=== PATIENT | male | born 1960 | race Two or more races ===

== ENCOUNTER 2024-01-05 08:54 | Inpatient (IN) | payer OTHER ==
[~2024-01-05] VITALS: Ht 182.9 cm; Wt 90.7 kg
--- NOTE | 2024-01-05 09:25 | NUR ---
SE RECIBE PACIENTE ALERTA EN COMPANIA DE JIMENEZ ESPOSA REFIERE VENIR YA QUE PACIENTE ESTA SUFRIENDO MOVIMIENTO INVOLUTARIOS PARECIDO A CONVULSIONES. ESTA REFIERE QUE EN EL CONRAD DE HOY PACIENTE HERNANDEZ ESTADO PRESENTANDO EPISODIOS DE [place], ENTUMECIMIENTO DE L[place] MAN[place], OJOS HACIA ATRAS. SE OBSERVA QUE AL SONREIR LOS LABIOS SE VIRAN. POCA DIFICULTAD PARA HABLAR.
[2024-01-05] MEDS ORDERED: HUMALOG100 UNIT/1 (09:33)
[2024-01-05] MEDS ORDERED: METFORMIN HCL1000 M2 (09:34)
[2024-01-05] MEDS ORDERED: ARICEPT5 MG (09:34)
[2024-01-05] MEDS ORDERED: LevETIRAcetam 500 MG/5 ML VIAL IV ONE (10:15)
[2024-01-05] MEDS ORDERED: DEXAMETHASONE SODIUM PHOSPHATE 4 MG/ML VIAL IV ONE (10:15)
[2024-01-05] MEDS ORDERED: 0.9 % SODIUM CHLORIDE 1,000 ML IV STA (10:30)
--- NOTE | 2024-01-05 10:43 | NUR ---
SE ORIENTA A PTE Y FAMILIAR SOBRE TX MEDICO ORDENADO POR . SE REALIZA DAWSON DE MUETRAS BRUCE ORDEN MEDICA Y BAJO MEDIDAS ASEPTICAS. VENOPUNCION PATENTE EN H/L Y BAJANDO IV FLUIDS POR REGULADOR. PTE PENDIENTE A ESTUDIO ORDENADO, SE NOTIFICA.
[2024-01-05 10:44] LABS: HEMATOCRIT 40.5 % (39.0-48.0); HEMOGLOBIN 14.4 g/dL (13-16.00); MEAN CELL VOLUME 92.5 fL (80.0-100.00); MEAN CORPUSCULAR HEMOGLOBIN 32.9 pg (27.00-32.0); MEAN CORPUSCULAR HGB CONC 35.5 g/dl (32.0-36.0); PLATELET COUNT 257 K/uL (150-450); RED BLOOD COUNT 4.38 M/uL (4.00-6.00); RED CELL DISTRIBUTION WIDTH 12.4 % (11.5-14.5)
[2024-01-05 11:08] LABS: URINE APPEARANCE Clear; URINE BILIRRUBIN Negative (NEGATIVE); URINE BLOOD Negative; URINE COLOR Yellow; URINE LEUKOCYTE Negative; URINE NITRATE Negative; URINE PROTEIN Negative (NEGATIVE); URINE UROBILINOGEN 0.2 E.U./dl
[2024-01-05 11:18] LABS: URINE BACTERIA 3.7 uL (0.0-1933); URINE EPITHELIAL CELLS 1.3 uL (0.0-38.8); URINE GLUCOSE >=1000 MG/DL (NEGATIVE); URINE RBC 0.4 uL (0.0-20.8)
[2024-01-05 11:19] LABS: BILIRUBIN TOTAL 1.04 mg/dL (0.3-1.2); BILIRUBIN,CONJUGATED 0.25 mg/dL (0.0-0.2); BILIRUBIN,UNCONJUGATED 0.79 mg/dL (0.0-0.6); CREATININE SERUM 0.92 mg/dL (0.70-1.30); GFR 83.36; POTASSIUM 3.97 mEq/L (3.5-5.1)
[2024-01-05] MEDS ORDERED: INSULIN REGULAR, HUMAN 1,000 UNIT/10 ML UNITS IV STA (11:41)
--- NOTE | 2024-01-05 15:40 | NUR ---
SE RECIBE PACIENTE ALERTA Y ORIENTADO X 2 EN CAMA CON BARANDAS ELEVADAS POR SEGURIDAD. PRESENTANDO BUEN PATRON RESPIRATORIO. RECIBIENDO IV'S 0.9NSS BAJANDO A 100ML/HR AREA DE VENOPUNCION EN BRAZO BONNY Y DERECHO AREA DE VENOUPUNCION YASMANY DE EDEMA Y ERITEMA. PENDIENTE RESULTADO DE MRI. SE MANTIENE EN OBSERVACION POR CAMBIOS EN CONDICION MEDICA.
[2024-01-05] MEDS ORDERED: INSULIN REGULAR, HUMAN 1,000 UNIT/10 ML UNITS SUBCUTANEO ONE (17:30)
[2024-01-05] MEDS ORDERED: LevETIRAcetam 5 MG/1 ML REDILUIDO IV SCH (18:55)
[2024-01-05] MEDS ORDERED: LORazepam 2 MG/ML VIAL IV ONE (19:00)
[2024-01-05] MEDS ORDERED: CEFTRIAXONE SODIUM 2,000 MG in 0.9 % SODIUM CHLORIDE 100 ML IV SCH (19:06)
[2024-01-05] MEDS ORDERED: 0.9 % SODIUM CHLORIDE 1,000 ML IV SCH (19:15)
[2024-01-05] MEDS ORDERED: ACETAMINOPHEN 500 MG GEL..CAP PO PRN (19:15)
[2024-01-05] MEDS ORDERED: INSULIN LISPRO 1,000 UNIT/10 ML UNITS SUBCUTANEO PRN (19:15)
[2024-01-05] MEDS ORDERED: DEXTROSE 50 % IN WATER 0.5 G/ML DISP.SYRIN IV PRN (19:15)
[2024-01-05] MEDS ORDERED: LORazepam 1 MG TABLET PO PRN (19:15)
[2024-01-05] MEDS ORDERED: LORazepam 2 MG/ML VIAL IV PUSH STA (21:08)
[2024-01-05 21:28] LABS: INR 1.02; PARTIAL THROMBOPLASTIN TIME 29.3 SECONDS (22.0-34.0); PROTHROMBIN TIME 10.7 SECONDS (9.0-11.5)
[2024-01-05 21:29] LABS: C-REACTIVE PROTEIN 7.58 MG/DL (0.00-0.29); MAGNESIUM 1.7 mg/dL (1.8-2.4); PHOSPHOROUS 2.6 mg/dL (2.5-4.9)
[2024-01-06] MEDS ORDERED: FAMOTIDINE/PF 20 MG in 0.9 % SODIUM CHLORIDE 8 ML IV PUSH SCH ×2 (09:00→21:00)
[2024-01-06] MEDS ORDERED: DEXTROSE 50 % IN WATER 0.5 G/ML VIAL IV PRN (11:15)
[2024-01-06] MEDS ORDERED: LORazepam 2 MG/ML VIAL IV STA (12:20)
[2024-01-06] MEDS ORDERED: LevETIRAcetam 5 MG/1 ML REDILUIDO IV SCH (17:00)
[2024-01-06] MEDS ORDERED: DEXAMETHASONE SODIUM PHOSPHATE 4 MG/ML VIAL IV SCH (18:00)
[2024-01-07 07:27] LABS: ALBUMIN 3.2 gm/dL (3.4-5.0); BILIRUBIN TOTAL 0.53 mg/dL (0.3-1.2); CALCIUM 8.3 mg/dL (8.5-10.1); CREATININE SERUM 0.62 mg/dL (0.70-1.30); GFR 131.45; GLOBULINA 3.2 G/DL (2.4-3.5); POTASSIUM 4.45 mEq/L (3.5-5.1); TOTAL PROTEIN 6.4 gm/dL (6.4-8.2)
[2024-01-07 07:29] LABS: TSH 0.702 uIU/mL (0.358-3.74)
[2024-01-07] MEDS ORDERED: DEXTROSE 50 % IN WATER 0.5 G/ML DISP.SYRIN IV PRN (14:15)
[2024-01-07] MEDS ORDERED: INSULIN NPH HUMAN ISOPHANE 1,000 UNITS/10 ML UNITS SUBCUTANEO SCH (21:00)
[2024-01-08] MEDS ORDERED: INSULIN NPH HUMAN ISOPHANE 1,000 UNITS/10 ML UNITS SUBCUTANEO SCH (09:17)
== END 2024-01-08 21:06 | disposition home or self-care (01) | DRG 101 ==
LOC: ER 08:55 → ICU-2 19:18 → SEC-K 01-07 11:40 → MEDI 01-07 15:53
PROVIDERS: General Practice; Internal Medicine Endocrinology, Diabetes & Metabolism; ADMIT Internal Medicine; ATTEND Internal Medicine
PROC: BW28ZZZ Computerized Tomography (CT Scan) of Head (ICD-10-PCS; principal; 2024-01-05)
PROC: B030ZZZ Magnetic Resonance Imaging (MRI) of Brain (ICD-10-PCS; 2024-01-05)
PROC: 4A12X4Z Monitoring of Cardiac Electrical Activity, External Approach (ICD-10-PCS; 2024-01-08)
DX: G40.209 Localization-related (focal) (partial) symptomatic epilepsy and epileptic syndromes with complex partial seizures, not intractable, without status epilepticus (principal); I67.82 Cerebral ischemia; R65.10 Systemic inflammatory response syndrome (SIRS) of non-infectious origin without acute organ dysfunction; F32.89 Other specified depressive episodes; F03.90 Unspecified dementia, unspecified severity, without behavioral disturbance, psychotic disturbance, mood disturbance, and anxiety
CPT/HCPCS: 70544

== ENCOUNTER 2024-06-29 17:05 | Inpatient (IN) | payer OTHER ==
[~2024-06-29] VITALS: Ht 175.3 cm; Wt 90.7 kg
[~2024-06-29 17:05] MED LIST: ARICEPT5 MG; HUMALOG100 UNIT/1; METFORMIN HCL1000 M2
[2024-06-29] MEDS ORDERED: KEPPRA1000 MG (17:47)
[2024-06-29] MEDS ORDERED: LevETIRAcetam 500 MG/5 ML VIAL IV SCH (18:15)
[2024-06-29] MEDS ORDERED: levoFLOXacin IN DEXTROSE 5 % 500MG/100ML PIGGYBAG IV ONE ×2 (18:15→18:55)
[2024-06-29] MEDS ORDERED: FAMOtidine 10 MG/ML (4ML VIAL) IV ONE (18:15)
[2024-06-29] MEDS ORDERED: 0.9 % SODIUM CHLORIDE 1,000 ML IV ONE (18:30)
[2024-06-29 18:50] LABS: HEMATOCRIT 42.6 % (39.0-48.0); HEMOGLOBIN 15.1 g/dL (13-16.00); MEAN CELL VOLUME 90.9 fL (80.0-100.00); MEAN CORPUSCULAR HEMOGLOBIN 32.3 pg (27.00-32.0); MEAN CORPUSCULAR HGB CONC 35.5 g/dl (32.0-36.0); PLATELET COUNT 243 K/uL (150-450); RED BLOOD COUNT 4.68 M/uL (4.00-6.00); RED CELL DISTRIBUTION WIDTH 12.8 % (11.5-14.5)
[2024-06-29] MEDS ORDERED: LevETIRAcetam 500 MG/5 ML VIAL IV ONE ×3 (18:54→22:17)
[2024-06-29] MEDS ORDERED: FAMOTIDINE/PF 20 MG/2 ML VIAL ONE (18:55)
[2024-06-29 19:05] LABS: INR 0.95; PARTIAL THROMBOPLASTIN TIME 25.4 SECONDS (22.0-34.0); PROTHROMBIN TIME 10.4 SECONDS (9.0-11.5)
[2024-06-29 19:13] LABS: URINE APPEARANCE Clear; URINE BILIRRUBIN Negative (NEGATIVE); URINE BLOOD Negative; URINE COLOR Yellow; URINE KETONE Trace (NEGATIVE); URINE LEUKOCYTE Negative; URINE NITRATE Negative; URINE PROTEIN Trace (NEGATIVE)
[2024-06-29 19:17] LABS: URINE EPITHELIAL CELLS 1.8 uL (0.0-38.8)
[2024-06-29 19:17] LABS: ERYTHROCYTE SEDIMENTATION RATE 23 mm/hr
[2024-06-29 19:24] LABS: URINE CAST 0.44 uL (0.0-1.40); URINE GLUCOSE >=1000 MG/DL (NEGATIVE); URINE RBC 0.4 uL (0.0-20.8); URINE WBC 1.4 uL (0.0-23.2)
[2024-06-29 19:43] LABS: COCAINE NEGATIVE (NEGATIVE); METHADONE NEGATIVE (NEGATIVE); OPIATES NEGATIVE (NEGATIVE); THC ( Cannabinoids) NEGATIVE (NEGATIVE)
[2024-06-29 19:51] LABS: ALBUMIN 4.2 gm/dL (3.4-5.0); BILIRUBIN TOTAL 0.49 mg/dL (0.3-1.2); CALCIUM 9.2 mg/dL (8.5-10.1); CREATININE SERUM 1.01 mg/dL (0.70-1.30); GFR 74.85; GLOBULINA 2.8 G/DL (2.4-3.5); POTASSIUM 4.91 mEq/L (3.5-5.1)
[2024-06-29 20:10] LABS: C-REACTIVE PROTEIN 0.42 MG/DL (0.00-0.29)
[2024-06-29] MEDS ORDERED: LORazepam 2 MG/ML VIAL IV ONE (20:45)
[2024-06-29] MEDS ORDERED: LORazepam 2 MG/ML DISP.SYRIN ONE (20:49)
[2024-06-29 22:59] LABS: ABG PH 7.396 (7.35-7.45); ABG PO2 76.4 mmHg (80-100); ABG pCO2 34.6 mmHg (35-45)
[2024-06-29 23:00] LABS: BASE EXCESS -3.3 mmol/l; BICARBONATE 20.8 mmol/l (23-25); Tco2 21.8 mmol/l; allen test SATISFACTORY; o2 21 %; puncture site RADIAL RIGHT
[2024-06-29] MEDS ORDERED: INSULIN LISPRO 1,000 UNIT/10 ML UNITS SUBCUTANEO PRN (23:00)
[2024-06-29] MEDS ORDERED: ACETAMINOPHEN 500 MG GEL..CAP PO PRN (23:00)
[2024-06-29] MEDS ORDERED: LORazepam 2 MG/ML VIAL IV PRN (23:00)
[2024-06-29] MEDS ORDERED: DEXTROSE 50 % IN WATER 0.5 G/ML DISP.SYRIN IV PRN (23:00)
[2024-06-29] MEDS ORDERED: 0.9 % SODIUM CHLORIDE 1,000 ML IV SCH (23:00)
[2024-06-29 23:02] LABS: SaO2 94.9 %
[2024-06-30 00:13] VITALS: BP 122/69; O2SAT 96
[2024-06-30 01:53] VITALS: BP 129/81; O2SAT 98
[2024-06-30 07:53] VITALS: BP 142/90
[2024-06-30 08:09] LABS: PHOSPHOROUS 3.7 mg/dL (2.5-4.9); TSH 3.62 uIU/mL (0.358-3.74)
[2024-06-30] MEDS ORDERED: LevETIRAcetam 500 MG/5 ML VIAL IV SCH ×2 (09:00)
[2024-06-30] MEDS ORDERED: ENOXAPARIN SODIUM 40 MG/0.4 ML SYRINGE SUBCUTANEO SCH (09:00)
[2024-06-30] MEDS ORDERED: FAMOTIDINE/PF 20 MG in 0.9 % SODIUM CHLORIDE 8 ML IV PUSH SCH (09:00)
[2024-06-30] MEDS ORDERED: LORazepam 2 MG/ML VIAL IV STA (12:32)
[2024-06-30] MEDS ORDERED: LORazepam 2 MG/ML VIAL IV PRN (12:45)
[2024-06-30 16:00] VITALS: BP 126/79; O2SAT 99
[2024-06-30] MEDS ORDERED: DONEPEZIL HCL 5 MG TABLET PO SCH (17:00)
[2024-07-01 01:48] VITALS: BP 127/84; O2SAT 95
[2024-07-01 08:40] VITALS: BP 153/98; O2SAT 95
[2024-07-01] MEDS ORDERED: DIVALPROEX SODIUM 500 MG TABLET.DR PO SCH (17:00)
[2024-07-01] MEDS ORDERED: LevETIRAcetam 5 MG/1 ML REDILUIDO IV SCH (17:00)
[2024-07-01 17:32] VITALS: BP 127/83; O2SAT 99
[2024-07-01] MEDS ORDERED: INSULIN GLARGINE,HUM.REC.ANLOG 1,000 UNITS/10 ML UNITS SUBCUTANEO SCH (21:00)
[2024-07-02 02:20] VITALS: BP 168/100; O2SAT 95
[2024-07-02 09:35] VITALS: BP 124/77; O2SAT 98
[2024-07-02] MEDS ORDERED: INSULIN LISPRO 1,000 UNIT/10 ML UNITS SUBCUTANEO SCH (12:00)
[2024-07-02] MEDS ORDERED: INSULIN GLARGINE,HUM.REC.ANLOG 1,000 UNITS/10 ML UNITS SUBCUTANEO SCH (21:00)
== END 2024-07-02 11:43 | disposition home or self-care (01) | DRG 100 ==
LOC: ER 17:07 → MEDI 22:52
PROVIDERS: General Practice; ADMIT Internal Medicine; ATTEND Internal Medicine
PROC: BW28ZZZ Computerized Tomography (CT Scan) of Head (ICD-10-PCS; principal; 2024-06-29)
PROC: B030ZZZ Magnetic Resonance Imaging (MRI) of Brain (ICD-10-PCS; 2024-06-29)
PROC: 4A12X4Z Monitoring of Cardiac Electrical Activity, External Approach (ICD-10-PCS; 2024-06-30)
DX: R56.9 Unspecified convulsions (principal); I63.9 Cerebral infarction, unspecified; F03.90 Unspecified dementia, unspecified severity, without behavioral disturbance, psychotic disturbance, mood disturbance, and anxiety; E11.9 Type 2 diabetes mellitus without complications; Z79.4 Long term (current) use of insulin
CPT/HCPCS: 70544

== ENCOUNTER 2024-08-15 06:54 | Emergency (ER) | payer OTHER ==
[~2024-08-15] VITALS: Ht 182.9 cm; Wt 90.7 kg
[~2024-08-15 06:54] MED LIST changes: +KEPPRA1000 MG
[2024-08-15] MEDS ORDERED: INSULIN REGULAR, HUMAN 1,000 UNIT/10 ML UNITS IV NR (08:30)
[2024-08-15] MEDS ORDERED: 0.9 % SODIUM CHLORIDE 1,000 ML IV SCH (08:30)
[2024-08-15 09:17] LABS: HEMATOCRIT 38.3 % (39.0-48.0); HEMOGLOBIN 13.2 g/dL (13-16.00); MEAN CELL VOLUME 92.6 fL (80.0-100.00); MEAN CORPUSCULAR HGB CONC 34.5 g/dl (32.0-36.0); PLATELET COUNT 193 K/uL (150-450); RED BLOOD COUNT 4.14 M/uL (4.00-6.00); RED CELL DISTRIBUTION WIDTH 12.8 % (11.5-14.5)
[2024-08-15 09:24] LABS: ALBUMIN 3.3 gm/dL (3.4-5.0); BILIRUBIN TOTAL 0.36 mg/dL (0.3-1.2); CALCIUM 9.3 mg/dL (8.5-10.1); CREATININE SERUM 1.21 mg/dL (0.70-1.30); GFR 60.57; GLOBULINA 3.4 G/DL (2.4-3.5); TOTAL PROTEIN 6.7 gm/dL (6.4-8.2)
== END 2024-08-15 12:48 | disposition home or self-care (01) ==
LOC: ER 06:57
PROVIDERS: General Practice
DX: S01.81XA Laceration without foreign body of other part of head, initial encounter (principal); W18.39XA Other fall on same level, initial encounter; Y93.89 Activity, other specified; Y92.012 Bathroom of single-family (private) house as the place of occurrence of the external cause; Y99.9 Unspecified external cause status; E11.65 Type 2 diabetes mellitus with hyperglycemia; Z79.4 Long term (current) use of insulin; Z79.84 Long term (current) use of oral hypoglycemic drugs; Z88.0 Allergy status to penicillin

== ENCOUNTER 2024-08-21 17:29 | Emergency (ER) | payer OTHER ==
[~2024-08-21] VITALS: Ht 182.9 cm; Wt 90.7 kg
[2024-08-21] MEDS ORDERED: LevETIRAcetam 500 MG/5 ML VIAL IV SCH (18:34)
[2024-08-21] MEDS ORDERED: FAMOTIDINE/PF 20 MG/2 ML VIAL IV ONE (18:45)
[2024-08-21 19:29] LABS: HEMATOCRIT 35.7 % (39.0-48.0); HEMOGLOBIN 12.3 g/dL (13-16.00); MEAN CELL VOLUME 92.9 fL (80.0-100.00); MEAN CORPUSCULAR HEMOGLOBIN 31.9 pg (27.00-32.0); MEAN CORPUSCULAR HGB CONC 34.4 g/dl (32.0-36.0); PLATELET COUNT 253 K/uL (150-450); RED BLOOD COUNT 3.85 M/uL (4.00-6.00); RED CELL DISTRIBUTION WIDTH 12.4 % (11.5-14.5)
[2024-08-21 19:54] LABS: INR 0.96; PARTIAL THROMBOPLASTIN TIME 23.6 SECONDS (22.0-34.0); PROTHROMBIN TIME 10.5 SECONDS (9.0-11.5)
[2024-08-21 20:04] LABS: ALBUMIN 3.2 gm/dL (3.4-5.0); BILIRUBIN TOTAL 0.38 mg/dL (0.3-1.2); CALCIUM 9.1 mg/dL (8.5-10.1); CREATININE SERUM 1.13 mg/dL (0.70-1.30); GFR 65.54; GLOBULINA 2.7 G/DL (2.4-3.5); POTASSIUM 4.23 mEq/L (3.5-5.1); TOTAL PROTEIN 5.9 gm/dL (6.4-8.2)
[2024-08-21 21:57] LABS: URINE APPEARANCE Clear; URINE BILIRRUBIN Negative (NEGATIVE); URINE BLOOD Negative; URINE COLOR Yellow; URINE LEUKOCYTE Negative; URINE NITRATE Negative; URINE PROTEIN Negative (NEGATIVE)
[2024-08-21 22:23] LABS: URINE GLUCOSE >=1000 MG/DL (NEGATIVE); URINE KETONE 40 (NEGATIVE); URINE RBC 0.4 uL (0.0-20.8)
[2024-08-21 22:24] LABS: URINE EPITHELIAL CELLS 0.4 uL (0.0-38.8)
[2024-08-21] MEDS ORDERED: INSULIN REGULAR, HUMAN 1,000 UNIT/10 ML UNITS SUBCUTANEO ONE (22:45)
== END 2024-08-21 22:57 | disposition home or self-care (01) ==
LOC: ER 17:32
PROVIDERS: General Practice
DX: G40.802 Other epilepsy, not intractable, without status epilepticus (principal); Z88.0 Allergy status to penicillin; E11.65 Type 2 diabetes mellitus with hyperglycemia; Z79.4 Long term (current) use of insulin; I10 Essential (primary) hypertension; W18.39XA Other fall on same level, initial encounter; Y93.89 Activity, other specified; Y92.89 Other specified places as the place of occurrence of the external cause; F32.89 Other specified depressive episodes
CPT/HCPCS: 71045; 72125; 74176; 93005; 96365; 96372; 99284; J1815; J3490

== ENCOUNTER 2025-02-06 11:51 | Emergency (ER) | payer OTHER ==
[~2025-02-06] VITALS: Ht 177.8 cm; Wt 72.6 kg
[2025-02-06] MEDS ORDERED: LORazepam 2 MG/ML VIAL IV ONE (12:30)
[2025-02-06 12:52] LABS: BASO % 0.4 % (0.1-1.2); EOS # 0.03 (0.04-0.54); EOS % 0.4 % (0.7-7.0); LYMPH # 1.32 (1.18-3.74); LYMPH % 15.5 % (19.3-53.1); MEAN PLATELET VOLUME 9.10 fl (9.4-12.4); MONO # 0.53 (0.24-0.82); MONO % 6.2 % (4.7-12.5); NEUT # 6.60 (1.56-6.13); NEUT % 77.1 % (34.0-71.1); RED CELL DISTRIBUTION WIDTH 11.8 % (11.6-14.4)
[2025-02-06 13:11] LABS: BUN CREA RATIO 22.0 (7.0-25.0); CREATININE SERUM 0.87 mg/dL (0.70-1.30); GFR 88.63; OSMOLALITY SERUM 299.0 MOSM/KG (275-295)
[2025-02-06 13:12] LABS: GLUCOSE FASTING 370.0 mg/dL (65-100)
[2025-02-06 13:22] LABS: URINE APPEARANCE Clear; URINE BILIRRUBIN Negative (NEGATIVE); URINE COLOR Yellow; URINE LEUKOCYTE Negative; URINE NITRATE Negative; URINE PROTEIN Trace (NEGATIVE); URINE UROBILINOGEN 0.2 E.U./dl
[2025-02-06 13:26] LABS: URINE BACTERIA 43.1 uL (0.0-1933); URINE EPITHELIAL CELLS 5.9 uL (0.0-38.8); URINE RBC 12.7 uL (0.0-20.8); URINE WBC 9.8 uL (0.0-23.2)
[2025-02-06 13:36] LABS: URINE BLOOD TRACES; URINE CAST 0.87 uL (0.0-1.40); URINE GLUCOSE >=1000 MG/DL (NEGATIVE); URINE KETONE 40 (NEGATIVE)
[2025-02-06] MEDS ORDERED: INSULIN REGULAR, HUMAN 1,000 UNIT/10 ML UNITS SUBCUTANEO ONE ×3 (19:15→23:00)
[2025-02-06] MEDS ORDERED: 0.9 % SODIUM CHLORIDE 1,000 ML IV ONE (21:45)
== END 2025-02-07 03:44 | disposition home or self-care (01) ==
LOC: ER 11:51
PROVIDERS: Emergency Medicine
DX: T14.8XXA Other injury of unspecified body region, initial encounter (principal); W18.39XA Other fall on same level, initial encounter; Y93.89 Activity, other specified; Y92.018 Other place in single-family (private) house as the place of occurrence of the external cause; Y99.9 Unspecified external cause status; G40.909 Epilepsy, unspecified, not intractable, without status epilepticus; E11.65 Type 2 diabetes mellitus with hyperglycemia; Z79.4 Long term (current) use of insulin; Z79.84 Long term (current) use of oral hypoglycemic drugs; G30.9 Alzheimer's disease, unspecified; F02.80 Dementia in other diseases classified elsewhere, unspecified severity, without behavioral disturbance, psychotic disturbance, mood disturbance, and anxiety; Z88.0 Allergy status to penicillin; M51.369 Other intervertebral disc degeneration, lumbar region without mention of lumbar back pain or lower extremity pain

== ENCOUNTER 2025-02-15 15:41 | Inpatient (IN) | payer OTHER ==
[~2025-02-15] VITALS: Ht 177.8 cm; Wt 81.6 kg
[2025-02-15] MEDS ORDERED: 0.9 % SODIUM CHLORIDE 1,000 ML IV SCH (16:45)
[2025-02-15] MEDS ORDERED: LORazepam 2 MG/ML VIAL IV ONE (16:45)
[2025-02-15 17:41] LABS: BASO % 0.7 % (0.1-1.2); EOS # 0.08 (0.04-0.54); EOS % 1.8 % (0.7-7.0); LYMPH # 1.67 (1.18-3.74); LYMPH % 37.4 % (19.3-53.1); MEAN PLATELET VOLUME 9.00 fl (9.4-12.4); MONO # 0.41 (0.24-0.82); MONO % 9.2 % (4.7-12.5); NEUT # 2.27 (1.56-6.13); NEUT % 50.7 % (34.0-71.1); RED CELL DISTRIBUTION WIDTH 11.7 % (11.6-14.4)
[2025-02-15 18:10] LABS: INR 0.98
[2025-02-15 18:17] LABS: ALT/SGPT 12.0 U/L (12-78); AST/SGOT 8.0 U/L (15-37); BILIRUBIN TOTAL 0.5 mg/dL (0.3-1.2); BUN CREA RATIO 14.0 (7.0-25.0); CREATININE SERUM 0.83 mg/dL (0.70-1.30); GFR 93.57; GLOBULINA 3.0 G/DL (2.4-3.5); LDH 143.0 U/L (87-241); OSMOLALITY SERUM 289.0 MOSM/KG (275-295); PHOSPHOKINASE CREATININE 52.0 U/L (39-308)
[2025-02-15 18:19] LABS: GLUCOSE FASTING 345.0 mg/dL (65-100)
[2025-02-15 18:32] LABS: COVID-19 AG NEGATIVE (NEGATIVE)
[2025-02-15] MEDS ORDERED: VANCOMYCIN HCL 1,000 MG VIAL IV SCH (19:17)
[2025-02-15] MEDS ORDERED: FAMOTIDINE/PF 20 MG in 0.9 % SODIUM CHLORIDE 8 ML IV PUSH SCH (19:18)
[2025-02-15] MEDS ORDERED: DONEPEZIL HCL 5 MG TABLET PO SCH (19:18)
[2025-02-15] MEDS ORDERED: INSULIN LISPRO 1,000 UNIT/10 ML UNITS SUBCUTANEO PRN (19:30)
[2025-02-15] MEDS ORDERED: DEXTROSE 50 % IN WATER 0.5 G/ML VIAL IV PRN (19:30)
[2025-02-15] MEDS ORDERED: ACETAMINOPHEN 500 MG GEL..CAP PO PRN (19:30)
[2025-02-15] MEDS ORDERED: CIPROFLOXACIN IN 5 % DEXTROSE 200 ML IV SCH (21:00)
[2025-02-15 23:06] LABS: URINE APPEARANCE Clear; URINE BILIRRUBIN Negative (NEGATIVE); URINE BLOOD Negative; URINE COLOR Yellow; URINE KETONE Trace (NEGATIVE); URINE LEUKOCYTE Negative; URINE NITRATE Negative; URINE PROTEIN Negative (NEGATIVE); URINE UROBILINOGEN 1.0 E.U./dl
[2025-02-15 23:07] LABS: URINE BACTERIA 7.2 uL (0.0-1933); URINE EPITHELIAL CELLS 1.8 uL (0.0-38.8); URINE WBC 2.4 uL (0.0-23.2)
[2025-02-15 23:20] LABS: URINE CAST 0.00 uL (0.0-1.40); URINE GLUCOSE >=1000 MG/DL (NEGATIVE); URINE RBC 0.7 uL (0.0-20.8); URINE SPERM MODERATE
[2025-02-15 23:24] VITALS: BP 141/83; O2SAT 99
[2025-02-16 08:00] VITALS: BP 136/76; O2SAT 100
[2025-02-16] MEDS ORDERED: ENOXAPARIN SODIUM 40 MG/0.4 ML SYRINGE SUBCUTANEO SCH (09:00)
[2025-02-16 10:33] LABS: INR 1.03
[2025-02-16 16:47] VITALS: BP 145/80
[2025-02-16] MEDS ORDERED: DIVALPROEX SODIUM 500 MG TAB.ER.24H PO SCH (20:07)
[2025-02-16] MEDS ORDERED: INSULIN GLARGINE,HUM.REC.ANLOG 1,000 UNITS/10 ML UNITS SUBCUTANEO SCH (21:00)
[2025-02-17 00:45] VITALS: BP 138/79; O2SAT 100
[2025-02-17] MEDS ORDERED: INSULIN LISPRO 1,000 UNIT/10 ML UNITS SUBCUTANEO SCH (08:00)
[2025-02-17 17:33] VITALS: BP 136/69; O2SAT 100
[2025-02-17] MEDS ORDERED: APIXABAN 5 MG TABLET PO SCH (20:21)
[2025-02-18 02:11] VITALS: BP 131/86
[2025-02-18 07:15] LABS: BASO % 0.4 % (0.1-1.2); EOS # 0.13 (0.04-0.54); EOS % 2.8 % (0.7-7.0); LYMPH # 1.56 (1.18-3.74); LYMPH % 33.6 % (19.3-53.1); MEAN PLATELET VOLUME 9.10 fl (9.4-12.4); MONO # 0.33 (0.24-0.82); MONO % 7.1 % (4.7-12.5); NEUT # 2.58 (1.56-6.13); NEUT % 55.7 % (34.0-71.1); RED CELL DISTRIBUTION WIDTH 11.7 % (11.6-14.4)
[2025-02-18 07:44] LABS: ALT/SGPT 9.0 U/L (12-78); AST/SGOT 8.0 U/L (15-37); BILIRUBIN TOTAL 0.43 mg/dL (0.3-1.2); BUN CREA RATIO 18.0 (7.0-25.0); CREATININE SERUM 0.8 mg/dL (0.70-1.30); GFR 97.63; GLOBULINA 2.5 G/DL (2.4-3.5); GLUCOSE FASTING 161.0 mg/dL (65-100); OSMOLALITY SERUM 285.0 MOSM/KG (275-295)
[2025-02-18 09:22] VITALS: BP 107/69
[2025-02-18] MEDS ORDERED: MAGNESIUM SULFATE IN WATER 4 GM/100 ML PIGGYBACK IV ONE (17:15)
[2025-02-18 18:00] VITALS: BP 101/63; O2SAT 98
[2025-02-18] MEDS ORDERED: APIXABAN 5 MG TABLET PO SCH (21:00)
[2025-02-19 02:08] VITALS: BP 120/65; O2SAT 98
[2025-02-19 08:47] VITALS: BP 127/77; O2SAT 98
[2025-02-19 18:40] VITALS: BP 158/91; O2SAT 99
[2025-02-20 02:18] VITALS: BP 160/85; O2SAT 100
[2025-02-20 09:55] VITALS: BP 148/96; O2SAT 98
[2025-02-20] MEDS ORDERED: INTESTINEX680 M1 PO (13:26)
[2025-02-20] MEDS ORDERED: LEVOFLOXACIN750 MG PO (13:26)
[2025-02-20] MEDS ORDERED: ARICEPT5 MG PO (13:27)
[2025-02-20] MEDS ORDERED: ELIQUIS5 MG PO ×2 (13:28)
[2025-02-20] MEDS ORDERED: KEPPRA500 MG PO (13:29)
[2025-02-20] MEDS ORDERED: KEPPRA1000 MG PO (13:29)
[2025-02-20] MEDS ORDERED: DEPAKOTE ER500 MG PO (13:29)
[2025-02-20] MEDS ORDERED: HUMALOG KW200 UNIT/1 SUBCUTANEO (13:30)
[2025-02-20] MEDS ORDERED: METFORMIN HCL1000 M2 PO (13:32)
[2025-02-20] MEDS ORDERED: INSULIN GL300 UNIT/2 SUBCUTANEO (13:32)
[2025-02-20 16:27] VITALS: BP 110/69
== END 2025-02-20 17:11 | disposition home or self-care (01) | DRG 623 ==
LOC: ER 15:41 → MEDI 19:31 → MEDJ 02-17 14:46
PROVIDERS: General Practice; ADMIT Internal Medicine; ATTEND Internal Medicine
PROC: B020ZZZ Computerized Tomography (CT Scan) of Brain (ICD-10-PCS; 2025-02-15)
PROC: B030ZZZ Magnetic Resonance Imaging (MRI) of Brain (ICD-10-PCS; 2025-02-15)
PROC: B44HZZZ Ultrasonography of Bilateral Lower Extremity Arteries (ICD-10-PCS; 2025-02-16)
PROC: B54DZZZ Ultrasonography of Bilateral Lower Extremity Veins (ICD-10-PCS; 2025-02-16)
PROC: 0JBQ0ZZ Excision of Right Foot Subcutaneous Tissue and Fascia, Open Approach (ICD-10-PCS; principal; 2025-02-17)
DX: E11.621 Type 2 diabetes mellitus with foot ulcer (principal); Z16.23 Resistance to quinolones and fluoroquinolones; G40.401 Other generalized epilepsy and epileptic syndromes, not intractable, with status epilepticus; I82.431 Acute embolism and thrombosis of right popliteal vein; I82.441 Acute embolism and thrombosis of right tibial vein; E11.51 Type 2 diabetes mellitus with diabetic peripheral angiopathy without gangrene; L97.519 Non-pressure chronic ulcer of other part of right foot with unspecified severity; E11.65 Type 2 diabetes mellitus with hyperglycemia; E83.42 Hypomagnesemia; G30.8 Other Alzheimer's disease; G31.09 Other frontotemporal neurocognitive disorder; F02.80 Dementia in other diseases classified elsewhere, unspecified severity, without behavioral disturbance, psychotic disturbance, mood disturbance, and anxiety; G47.33 Obstructive sleep apnea (adult) (pediatric); Z74.01 Bed confinement status; Z79.84 Long term (current) use of oral hypoglycemic drugs; Z79.4 Long term (current) use of insulin; Z88.0 Allergy status to penicillin; B95.62 Methicillin resistant Staphylococcus aureus infection as the cause of diseases classified elsewhere; B95.1 Streptococcus, group B, as the cause of diseases classified elsewhere
CPT/HCPCS: 70551